=== PATIENT | male | born 1965 | race Caucasian/White ===

== ENCOUNTER 2019-01-20 20:30 | Emergency (ER) | payer SELFPAY, OTHER ==
[2019-01-20] MEDS ORDERED: morphine 4 MG/ML VIAL IV (22:37)
[2019-01-20] MEDS ORDERED: ONDANSETRON 4 MG INJ IV (22:37)
[2019-01-20] MEDS ORDERED: METHYLPREDNISOLONE 125 MG INJ IV (23:00)
[2019-01-20] MEDS ORDERED: CEFTRIAXONE 1 GM INJ IM (23:00)
[2019-01-20] MEDS ORDERED: SOD CHLORIDE 0.9% 1,000 ML IV (23:00)
[2019-01-20] MEDS ORDERED: METHYLPREDNISOLONE 125 MG INJ IM (23:00)
[2019-01-20] MEDS: HYDROCODONE/APAP (10/325) TAB PO (23:08)
[2019-01-20] MEDS: ONDANSETRON (ODT) 4 MG TAB ODT (23:08)
[2019-01-20] MEDS: METHYLPREDNISOLONE 125 MG INJ IV (23:09)
[2019-01-20] MEDS: CEFTRIAXONE 1 GM/50 ML (PMX) 50 ML IVPB (23:22)
== END 2019-01-21 00:25 | disposition home or self-care (01) ==
LOC: FTE 01-21 00:25
DX: K04.6 Periapical abscess with sinus (principal); H60.93 Unspecified otitis externa, bilateral; K05.319 Chronic periodontitis, localized, unspecified severity
CPT/HCPCS: 96374; 96375; 99284-25

== ENCOUNTER 2019-01-31 19:40 | Emergency (ER) | payer MEDICAID | END 2019-01-31 22:00 | disposition home or self-care (01) | LOC: FTE 22:00 | DX: J32.9 Chronic sinusitis, unspecified (principal) | CPT/HCPCS: 99283; Z7502 ==